=== PATIENT | male | born 1955 | race Caucasian/White ===

== ENCOUNTER → 2020-04-03 | Day surgery (SDC) | payer OTHER ==
[~2020-04-03] MED LIST: FLOMAX0.4 MG PO; GLUCAGON FOR INJ 1 MG VIAL ONE; HYDROCHLOROTH12.5 M1 PO; HYOSCYAMINE 0.125 MG TAB ONE; LIDOCAINE HCL 2% LOCAL INJ 5 ML SDV VIAL INJ ONE; MIDAZOLAM HCL 2 MG/2 ML VIAL ONE; PANTOPRAZOLE SO40 MG PO; PROPOFOL IV EMULSION 10 MG/ML 20 ML VIAL ONE; RAMIPRIL10 MG PO
--- NOTE | 2020-04-03 07:10 | NUR ---
SPIRITUAL CARE - Pre-Surgery Assessment: Pt in bed. Pt's at bedside. Pt identified as [employer]. Pt reported supportive attention from family and friends. Intervention: I provided pastoral presence, hospitality, sympathetic listening, and prayer. I acquainted pt with availability of liability claims representative while hospitalized. Outcome: Pt expressed appreciation for visit. No need for follow up indicated at this time. ENOCH [employer] Spiritual Care Department O: [phone]
[2020-04-03 09:25] VITALS: BP 138/79
--- NOTE | 2020-04-03 09:42 | Operative Report ---
DATE OF PROCEDURE: 04/03/2020 SURGEON: Karsten Lovell MD PROCEDURE: Colonoscopy with polypectomy. INDICATIONS FOR COLONOSCOPY: Surveillance colonoscopy, personal history of colon polyps. MEDICATIONS: The patient was done under MAC, please see anesthesiologist's note. PROCEDURE IN DETAIL: With the patient in left lateral decubitus position, a flexible fiberoptic Olympus colonoscope was inserted into the rectum with ease and advanced all the way to the cecum. Mucosa overlying the cecum appeared to be within normal limits. One polyp was cold biopsied and two polyps were hot biopsied from the ascending colon. The transverse appeared to be within normal limits. Diverticular disease was noted to involve the distal descending and the sigmoid colon. One minute polyp was cold biopsied from the sigmoid colon and two minute polyps were hot biopsied from the rectum. The scope was then retroflexed into the distal rectum. Small internal hemorrhoids were noted, none of which was actively bleeding. The scope was then straightened out, it was subsequently withdrawn. The patient tolerated the procedure well. IMPRESSION: 1. Ascending colon polyps x3, two hot biopsied and one cold biopsied. 2. Diverticulosis. 3. Sigmoid colon polyp, cold biopsied. 4. Rectal polyps x2, hot biopsied. 5. Internal hemorrhoids, none actively bleeding. PLAN: Follow up histology. Initiate high-fiber, low-fat diet. Initiate high-fiber supplement. The patient might benefit from a followup colonoscopy in 3 years. Karsten Lovell MD [facility] [place]/JARET /[id number] cc: Puneet Lovell MD
== END | disposition home or self-care (01) ==
LOC: OR 05:57
PROVIDERS: ATTEND Internal Medicine Gastroenterology
DX: Z09 Encounter for follow-up examination after completed treatment for conditions other than malignant neoplasm (principal); D12.2 Benign neoplasm of ascending colon; K62.1 Rectal polyp; K57.30 Diverticulosis of large intestine without perforation or abscess without bleeding; K64.8 Other hemorrhoids; K29.70 Gastritis, unspecified, without bleeding; K21.9 Gastro-esophageal reflux disease without esophagitis; I10 Essential (primary) hypertension; F41.9 Anxiety disorder, unspecified; Z01.810 Encounter for preprocedural cardiovascular examination; Z01.812 Encounter for preprocedural laboratory examination; Z11.59 Encounter for screening for other viral diseases
CPT/HCPCS: 45380; 45384; 87635; 93005; J1610; J2001; J2250; J2704; 45378